=== PATIENT | female | born 1935 ===

== ENCOUNTER 2021-12-08 09:45 | Inpatient (IN) | payer OTHER ==
[~2021-12-08] VITALS: Ht 157.5 cm; Wt 49.9 kg
[2021-12-08] MEDS ORDERED: SYNTHROID50 MCG PO (12:09)
[2021-12-08] MEDS ORDERED: INTESTIN PO (12:10)
[2021-12-08] MEDS ORDERED: [UNRECOGNIZED DRUG - OTHER] PO (12:11)
[2021-12-08] MEDS ORDERED: AMOX PO (12:12)
[2021-12-08] MEDS ORDERED: B COMPLEX1 EAC1 PO (12:12)
[2021-12-08] MEDS ORDERED: VITAMIN C PO (12:12)
[2021-12-12] MEDS ORDERED: AMOX-CLAV 875-1 EAC1 (07:53)
[2021-12-12] MEDS ORDERED: INTESTINEX680 M1 (07:54)
[2021-12-12] MEDS ORDERED: CLORAZEPATE D3.75 MG (07:55)
[2021-12-12] MEDS ORDERED: VITAMIN C100 MG PO (07:56)
[2021-12-15] MEDS ORDERED: DICLOFENAC SODI75 MG PO (10:30)
[2021-12-15] MEDS ORDERED: PROTONIX40 MG PO (10:31)
[2021-12-15] MEDS ORDERED: INTESTINEX680 M1 PO (10:31)
== END 2021-12-15 15:07 | disposition home or self-care (01) | DRG 330 ==
LOC: O/R 12-12 05:55 → SURH 12-12 05:55
PROVIDERS: ADMIT Surgery; ATTEND Surgery
PROC: 0DBP4ZZ Excision of Rectum, Percutaneous Endoscopic Approach (ICD-10-PCS; 2021-12-12)
PROC: 0DTN4ZZ Resection of Sigmoid Colon, Percutaneous Endoscopic Approach (ICD-10-PCS; principal; 2021-12-12 07:00)
DX: K57.20 Diverticulitis of large intestine with perforation and abscess without bleeding (principal); N32.1 Vesicointestinal fistula; K63.2 Fistula of intestine; F41.9 Anxiety disorder, unspecified; E03.8 Other specified hypothyroidism; G30.9 Alzheimer's disease, unspecified; F02.80 Dementia in other diseases classified elsewhere, unspecified severity, without behavioral disturbance, psychotic disturbance, mood disturbance, and anxiety